=== PATIENT | male | born 1990 | race Caucasian/White ===

== ENCOUNTER 2020-09-13 18:27 | Emergency (ER) | payer BC ==
[2020-09-13] MEDS ORDERED: Sodium Chloride 0.9% 10 ML Syringe FLUSH PRN (19:00)
--- NOTE | 2020-09-13 19:18 | EDM.PDOC ---
ED HPI GENERAL MEDICAL PROBLEM - General Chief Complaint: Gastrointestinal Problem Stated Complaint: DIZZY, HEADACHE, BLACK STOOL Time Seen by Provider: 09/13/20 18:44 Source of Information: Reports: Patient, RN Notes Reviewed History Limitations: Reports: No Limitations - History of Present Illness INITIAL COMMENTS - FREE TEXT/NARRATIVE: The patient is a 30-year-old male who presents to the ED for the evaluation of the few different complaints. He notes that roughly around noon, started with some black stools, and a annoying headache a few hours ago, and then some mild dizziness. Patient notes he has been having issues with upper abdominal pains and GI discomfort since last night, he did take some Pepto-Bismol at that time. He states that the abdomen pain has since subsided but it still seems to bother him from time to time. 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 He had been on Eliquis and/or other blood thinners a few years ago, was sent to [facility] and it was subsequently stopped. Patient notes that roughly 2 weeks ago he developed some cramping into his calfs, that he felt similar to the last time he was seen for his DVTs. He was placed on Eliquis at that time due to the cramping. Patient otherwise is feeling well has had no fevers or chills, cough or shortness of breath. He does not take any sort of NSAIDs for pain relief, he does not take any acid suppressors for stomach issues. Headache Pain Score (Numeric/FACES): 4 - Related Data Allergies Allergy/AdvReac Type Severity Reaction Status Date / Time Penicillins Allergy Cannot Verified 09/13/20 18:34 Remember Home Meds: Home Meds Apixaban [Eliquis] 5 mg PO BID 09/13/20 [History] Past Medical History Cardiovascular History: Reports: Blood Clots/VTE/DVT, Other (See Below) Other Cardiovascular History: on Eliquis for factor V Leiden deficiency Musculoskeletal History: Reports: Fracture Hematologic History: Reports: Anticoagulation Therapy, Bleeding Disorder, Other (See Below) Other Hematologic History: factor V Leiden deficiency Social & Family History - Tobacco Use Tobacco Use Status *Q: Current Every Day Tobacco User Years of Tobacco use: 10 Packs/Tins Daily: 0.5 - Caffeine Use Caffeine Use: Reports: Coffee - Recreational Drug Use Recreational Drug Use: No ED ROS GENERAL - Review of Systems Review Of Systems: Comprehensive ROS is negative, except as noted in HPI. ED EXAM, GENERAL - Physical Exam Exam: See Below Exam Limited By: No Limitations General Appearance: Alert, WD/WN, No Apparent Distress Respiratory/Chest: No Respiratory Distress, Lungs Clear, Normal Breath Sounds, No Accessory Muscle Use, Chest Non-Tender Cardiovascular: Normal Peripheral Pulses, Regular Rate, Rhythm, No Edema Peripheral Pulses: 2+: Radial (L), Radial (R) GI/Abdominal: Normal Bowel Sounds, Soft, Non-Tender, No Distention, No Mass Rectal (Males) Exam: Normal Exam, Normal Rectal Tone, Prostate Normal, Black Stool (mildly darkened stool; most likely d/t Pepto Bismol use last noc), Heme - Stool Extremities: Normal Inspection, Normal Capillary Refill Neurological: Alert, Oriented, Normal Cognition, No Motor/Sensory Deficits Psychiatric: Normal Affect, Normal Mood Skin Exam: Warm, Dry, Intact, Normal Color, No Rash Course - Vital Signs Last Recorded V/S: Last Vital Signs Temp 97.1 F 09/13/20 18:30 Pulse 64 09/13/20 18:30 Resp 16 09/13/20 18:30 BP 136/59 L 09/13/20 18:30 Pulse Ox 100 09/13/20 18:30 Orthostatic Blood Pressure [ 129/83 Standing] Orthostatic Blood Pressure [ 124/79 Sitting] Orthostatic Blood Pressure [ 125/71 Supine] - Orders/Labs/Meds Orders: Active Orders 24 hr Category Date Time Status Orthostatic Vital Signs [RC] ASDIRECTED Care 09/13/20 19:00 Active Peripheral IV Care [RC] . DIRECTED Care 09/13/20 19:00 Active Head wo Cont [CT] Stat Exams 09/13/20 20:10 Ordered Sodium Chloride 0.9% [Saline Flush] Med 09/13/20 19:00 Active 10 ml FLUSH ASDIRECTED PRN Peripheral IV Insertion Adult [OM.PC] Routine Oth 09/13/20 19:00 Ordered Medication Orders Sodium Chloride (Saline Flush) 10 ml FLUSH ASDIRECTED PRN PRN Reason: Keep Vein Open Last Admin: 09/13/20 19:21 Dose: 10 ml Documented by: MERCEDES Labs: Laboratory Tests 09/13/20 09/13/20 09/13/20 Range/Units 19:21 19:21 19:21 WBC 6.89 (4.23-9.07) K/mm3 RBC 5.64 (4.63-6.08) M/mm3 Hgb 15.6 (13.7-17.5) gm/dl Hct 48.5 (40.1-51.0) % MCV 86.0 (79.0-92.2) fl MCH 27.7 (25.7-32.2) pg MCHC 32.2 (32.2-35.5) g/dl RDW Std Deviation 41.5 (35.1-43.9) fL Plt Count 245 (163-337) K/mm3 MPV 9.7 (9.4-12.3) fl Neut % (Auto) 65.4 (34.0-67.9) % Lymph % (Auto) 26.0 (21.8-53.1) % Peach % (Auto) 6.0 (5.3-12.2) % Eos % (Auto) 2.2 (0.8-7.0) Baso % (Auto) 0.3 (0.1-1.2) % Neut # (Auto) 4.51 (1.78-5.38) K/mm3 Lymph # (Auto) 1.79 (1.32-3.57) K/mm3 Peach # (Auto) 0.41 (0.30-0.82) K/mm3 Eos # (Auto) 0.15 (0.04-0.54) K/mm3 Baso # (Auto) 0.02 (0.01-0.08) K/mm3 PT 11.9 (9.7-12.0) SECONDS INR 1.11 APTT 25.8 (21.7-31.4) SECONDS Sodium 139 (136-145) mEq/L Potassium 4.1 (3.5-5.1) mEq/L Chloride 102 (98-107) mEq/L Carbon Dioxide 29 (21-32) mEq/L Anion Gap 12.1 (5-15) BUN 15 (7-18) mg/dL Creatinine 1.1 (0.7-1.3) mg/dL Est Cr Clr Drug Dosing 113.13 mL/min Estimated GFR (MDRD) > 60 (>60) mL/min BUN/Creatinine Ratio 13.6 L (14-18) Glucose 93 (74-106) mg/dL Calcium 9.0 (8.5-10.1) mg/dL Magnesium 1.9 (1.8-2.4) mg/dl Total Bilirubin 0.4 (0.2-1.0) mg/dL AST 21 (15-37) U/L ALT 48 (16-63) U/L Alkaline Phosphatase 63 (46-116) U/L Total Protein 7.7 (6.4-8.2) g/dl Albumin 4.5 (3.4-5.0) g/dl Globulin 3.2 gm/dL Albumin/Globulin Ratio 1.4 (1-2) Meds: Medications Generic Name Dose Route Start Last Admin Trade Name Freq PRN Reason Stop Dose Admin Sodium Chloride 10 ml 09/13/20 19:00 09/13/20 19:21 Saline Flush FLUSH 10 ml ASDIRECTED PRN Administration Keep Vein Open - Re-Assessments/Exams Free Text/Narrative Re-Assessment/Exam: 09/13/20 19:21 Patient presents to the ED for evaluation of his generalized symptoms. Due to the patient being recently started on Eliquis again, and having a mild headache. I did offer to do a head CT to rule out head bleed, patient will talk with family members, to see if he wants to go through with this, get baseline labs for evaluation. Patient's Hemoccult stool test was negative, his black stools are likely due to Pepto ingestion. 09/13/20 20:26 Valuation demonstrates no focal abnormalities. Patient did agree to do a head CT at this time. 1 has been ordered for evaluation of a head bleed. I did tell the patient he should follow-up with a regular care provider of choice, for ongoing health management. Patient did not exhibit any dizziness while being in the ER, and orthostatic vital signs were negative. 09/13/20 21:[address] is negative. Departure - Departure Time of Disposition: 21:26 Disposition: Home, Self-Care 01 Condition: Good Clinical Impression: Stool color black Headache Qualifiers: Headache type: unspecified Headache chronicity pattern: acute headache Intractability: not intractable Qualified Code(s): R51.9 - Headache, unspecified - Discharge Information *PRESCRIPTION DRUG MONITORING PROGRAM REVIEWED*: No *COPY OF PRESCRIPTION DRUG MONITORING REPORT IN PATIENT JOSSELYN: No Referrals: PCP,None [Primary Care Provider] - Forms: ED Department Discharge Additional Instructions: You were evaluated in the ER today for your headache, and dark stools. Laboratory evaluation done at today's visit are unremarkable, your exams today also are unremarkable for any obvious medical findings. Your stool color is thought to be dark due to the Pepto-Bismol that you took last night. Please note for future use, Pepto-Bismol can turn your stools black for the next day or [address] A head CT was performed today and everything was within normal limits. Recommend you set up care with a regular provider, so they can manage your health. Highly recommend that you start taking a medication like omeprazole, for ongoing reflux type issues, or stomach discomfort as you could have a component of indigestion going on. Please continue to take your Eliquis as directed, due to your factor V Leiden deficiency, this puts you at a hypercoagulable state which means you are more prone to getting blood clots. Please return to the ER at any time if symptoms change or worsen. Sepsis Event Note (ED) - Evaluation Sepsis Screening Result: No Definite Risk - Focused Exam Vital Signs: Vital Signs Temp Pulse Resp BP Pulse Ox 09/13/20 18:30 97.1 F 64 16 136/59 L 100 - My Orders Last 24 Hours: My Active Orders 09/13/20 19:00 Orthostatic Vital Signs [RC] ASDIRECTED Peripheral IV Care [RC] . DIRECTED Sodium Chloride 0.9% [Saline Flush] 10 ml FLUSH ASDIRECTED PRN Peripheral IV Insertion Adult [OM.PC] Routine 09/13/20 20:10 Head wo Cont [CT] Stat - Assessment/Plan Last 24 Hours: My Active Orders 09/13/20 19:00 Orthostatic Vital Signs [RC] ASDIRECTED Peripheral IV Care [RC] . DIRECTED Sodium Chloride 0.9% [Saline Flush] 10 ml FLUSH ASDIRECTED PRN Peripheral IV Insertion Adult [OM.PC] Routine 09/13/20 20:10 Head wo Cont [CT] Stat
--- NOTE | 2020-09-14 08:27 | CT ---
Head CT Technique: Multiple axial sections through the brain were obtained. Comparison: No prior intracranial imaging is available. Findings: Ventricles along with basal cisterns and sulci over the convexities are within normal limits for the patient's age. No abnormal parenchymal densities are appreciated. No evidence of intracranial hemorrhage. No midline shift or mass-effect is appreciated. Bone window settings were reviewed which show the visualized mastoid sinuses to appear clear. Visualized paranasal sinuses are also felt to be without acute finding. No acute calvarial abnormality is appreciated. Impression: 1. Nothing acute is identified on noncontrast head CT study. Diagnostic code #1 I agree with preliminary report from [facility], finalized on 09/13/20, 10:19 PM [employer]
== END 2020-09-13 21:41 | disposition home or self-care (01) ==
LOC: JD.ED 18:27
DX: R19.5 Other fecal abnormalities (principal); R51.9 Headache, unspecified; F17.210 Nicotine dependence, cigarettes, uncomplicated; Z86.718 Personal history of other venous thrombosis and embolism; Z79.01 Long term (current) use of anticoagulants; Z88.0 Allergy status to penicillin
CPT/HCPCS: 36415; 70450; 70450-26; 80053; 83735; 85025; 85610; 85730; 99284; 99285-25

== ENCOUNTER 2023-07-08 19:55 | Emergency (ER) | payer BC | END 2023-07-08 22:50 | disposition home or self-care (01) | LOC: JD.ED 19:55 | DX: S80.11XA Contusion of right lower leg, initial encounter (principal); Z88.0 Allergy status to penicillin; W55.12XA Struck by horse, initial encounter | CPT/HCPCS: 93971-26-RT; 93971-RT; 99283 ==